=== PATIENT | female | born 1995 | race Two or more races ===

== ENCOUNTER 2020-08-08 08:24 | Emergency (ER) | payer MEDICAID, OTHER ==
[~2020-08-08] VITALS: Ht 167.6 cm; Wt 62.2 kg
[2020-08-08 08:32] VITALS: BP 128/64
[2020-08-08] MEDS ORDERED: IBUPROFEN 600MG TABLET PO STA (09:19)
[2020-08-08 09:38] LABS: HEMATOCRIT. 39.7 % (36.0-48.0); HEMOGLOBIN. 13.3 g/dL (12.0-16.0); MEAN CORPUSCULAR HEMOGLOBIN 29.4 pg (28.0-32.0); MEAN CORPUSCULAR VOLUME 87.5 fL (81.0-99.0); MEAN PLATELET VOLUME 7.9 fl (7.4-10.4); PLATELET 294 x1000/uL (130-400); RED BLOOD CELL COUNT 4.54 mill/uL (4.2-5.4); RED CELL DISTRIBUTION WIDTH 13.3 % (11.6-14.6)
[2020-08-08 09:45] LABS: CHLORIDE 101 mEq/L (98-107)
[2020-08-08 10:10] LABS: PLATELET ESTIMATE NORMAL
[2020-08-08 10:11] LABS: CLARITY URINE CLOUDY (CLEAR); COLOR URINE YELLOW (YELLOW); KETONES URINE NEGATIVE (NEGATIVE); LEUKOCYTE ESTERASE URINE 1+ (NEGATIVE); NITRITE URINE NEGATIVE (NEGATIVE); OCCULT BLOOD URINE 2+ (NEGATIVE); PROTEIN URINE NEGATIVE (NEGATIVE); SPECIFIC GRAVITY URINE 1.017 (1.005-1.030)
[2020-08-08 10:55] LABS: HCG SCREEN NEGATIVE
== END 2020-08-08 12:00 | disposition home or self-care (01) ==
LOC: EDBD 08:24 → ER 08:24
DX: N12 Tubulo-interstitial nephritis, not specified as acute or chronic (principal); Z88.0 Allergy status to penicillin
CPT/HCPCS: 36415; 74176; 80053; 81003; 81025; 84703; 85025; 87077; 87186; 93005; 99285